=== PATIENT | female | born 1970 | race Caucasian/White ===

== ENCOUNTER 2016-08-06 10:51 | Emergency (ER) | payer OTHER ==
[2016-08-06 11:09] VITALS: BP 100/56; PULSE 70; TEMP 97.7; BMI 39.3
[2016-08-06] MEDS ORDERED: ALBUTEROL SO4 2.5/IPRATROPIUM 0.5 INH SOL 3 ML VIAL.NEB. NEB ONE ×4 (12:11→13:42)
--- NOTE | 2016-08-06 12:12 | PDOC ---
History of Present Illness - General Chief Complaint: Asthma Stated Complaint: SOB Time Seen by Provider: 08/06/16 11:54 History Source: Patient Exam Limitations: No Limitations - History of Present Illness Initial Comments: 08/06/16 12:45 My chief complaint: Wheezing, cough, shortness of breath History of present illness: Patient is a 46 year old female with a history of asthma here today complaining of cough productive for clear 3 days with wheezing and shortness of breath even at rest for the last 3 days with minimal temporary relief of symptoms with albuterol. Patient reports that she supposed to be using Advair however her network systems integrator an internal medicine doctor from [facility] did not do the proper paperwork for her to get it from her insurance company Patient normally takes Advair that helps prevent flareups of her asthma. Patient has been taking Singulair however it dries out her throat and her nose. Patient does report slight nasal congestion. Patient is able to speak in complete sentences without any shortness of breath noticed. Patient is a smoker is taking Chantix. Reports that she was hospitalized for her asthma on here for a few days. Patient denies ever being intubated due to her asthma. She denies any fever. Timing/Duration: getting worse Severity: moderate (3 days ) Associated Symptoms: reports: cough (white sputa), shortness of breath (even at rest) Past History - Past Medical History Allergies/Adverse Reactions: Allergies Allergy/AdvReac Type Severity Reaction Status Date / Time shellfish derived Allergy Difficulty Verified 08/06/16 11:09 Breathing Home Medications: Ambulatory Orders Albuterol Sulfate Inhaler - [Ventolin HFA Inhaler -] 1 inh PO QID PRN 04/16/12 Albuterol 2.5/Ipratropium 0.5 [Duoneb -] 1 neb IH QID #28 vial.neb. MDD 4 Albuterol Sulfate Inhaler - [Ventolin Hfa Inhaler -] 2 inh PO Q4H PRN #1 inh MDD 1 08/06/16 Fluticasone/Salmeterol [Advair 250-50 Diskus] 1 each IH BID #1 blst.w.dev MDD 2 08/06/16 Prednisone [Deltasone] 60 mg PO DAILY #12 tablet 08/06/16 Asthma: Yes - Psycho/Social/Smoking Cessation Hx Anxiety: No Suicidal Ideation: No Smoking Status: Yes Smoking History: Former smoker Have you smoked in the past 12 months: Yes Number of Cigarettes Smoked Daily: 20 If you are a former smoker, when did you quit?: 2 WKS Information on smoking cessation initiated: No 'Breaking Loose' booklet given: 06/07/16 Hx Alcohol Use: No Drug/Substance Use Hx: No Substance Use Type: None Review of Systems - Review of Systems Able to Perform ROS?: Yes Constitutional: No: Symptoms Reported HEENTM: Yes: Nose Congestion (slight) Respiratory: Yes: Shortness of Breath, SOB at Rest, Wheezing, Productive cough ( clear ). No: Stridor Cardiac (ROS): No: Symptoms Reported ABD/GI: No: Symptoms Reported : No: Symptoms Reported Musculoskeletal: No: Symptoms Reported Integumentary: No: Symptoms Reported Neurological: No: Symptoms reported *Physical Exam - Vital Signs Last Vital Signs Temp Pulse Resp BP Pulse Ox 97.7 F 70 20 100/56 96 08/06/16 11:06 08/06/16 11:06 08/06/16 11:06 08/06/16 11:06 08/06/16 11:06 - Physical Exam General Appearance: Yes: Appropriately Dressed HEENT: positive: TMs Normal, Nasal Congestion. negative: Pharyngeal Erythema, Tonsillar Exudate, Tonsillar Erythema, Rhinorrhea Neck: negative: Lymphadenopathy (R), Lymphadenopathy (L) Respiratory/Chest: positive: Wheezing (diffuse inspiratory/expiratory b/l ). negative: Accessory Muscle Use, Decreased Breath Sounds, Crackles, Rhonchi, Stridor Cardiovascular: positive: Regular Rhythm, Regular Rate, S1, S2 Integumentary: positive: Normal Color Neurologic: positive: Alert, Responsive Medical Decision Making - Medical Decision Making 08/06/16 12:51 Patient is a 46 year old female with a history of asthma here today complaining of cough productive for clear 3 days with wheezing and shortness of breath even at rest for the last 3 days with minimal temporary relief of symptoms with albuterol. Patient reports that she supposed to be using Advair however her network systems integrator an internal medicine doctor from [facility] did not do the proper paperwork for her to get it from her insurance company Patient normally takes Advair that helps prevent flareups of her asthma. Patient has been taking Singulair however it dries out her throat and her nose. Patient does report slight nasal congestion. Patient is able to speak in complete sentences without any shortness of breath noticed. Patient is a smoker is taking Chantix. Reports that she was hospitalized for her asthma on 06/09/2016 here for a few days. Patient denies ever being intubated due to her asthma. She denies any fever. My exacerbation Plan: Prednisone 60 mg now and then daily 4 days DuoNeb now X-ray chest PA and lateral no infiltrate per Dr. Silva 08/06/16 13:01 08/06/16 13:41 feeling better lungs rt CTA left minimal expiratory wheeze duoneb 08/06/16 13:51 advair 250/50 one inhale bid duoneb neb qid prn albuterol HFA 2 puffs every 4 hrs prn wheezing/sob *DC/Admit/Observation/Transfer Diagnosis at time of Disposition: Asthma exacerbation - Discharge Dispostion Disposition: HOME Condition at time of disposition: Stable - Prescriptions Prescriptions: Fluticasone/Salmeterol [Advair 250-50 Diskus] 1 each IH BID #1 blst.w.dev MDD 2 Prednisone [Deltasone] 60 mg PO DAILY #12 tablet Albuterol 2.5/Ipratropium 0.5 [Duoneb -] 1 neb IH QID #28 vial.neb. MDD 4 Albuterol Sulfate Inhaler - [Ventolin Hfa Inhaler -] 2 inh PO Q4H PRN #1 inh MDD 1 PRN Reason: Short Of Breath/Wheezing - Patient Instructions Additional Instructions: Follow-up with your primary care provider within the next 2 days Return to emergency room if any difficulty breathing Rest Patient voiced understanding of discharge instructions and all questions were answered
[2016-08-06] MEDS ORDERED: predniSONE 20 MG TABLET (UD) PO ONE (12:31)
[2016-08-06] MEDS ORDERED: predniSONE 20 MG TABLET (UD) ONE (12:32)
== END 2016-08-06 13:57 | disposition home or self-care (01) ==
LOC: JERFT 10:51
PROC: 3E0F7GC Introduction of Other Therapeutic Substance into Respiratory Tract, Via Natural or Artificial Opening (ICD-10-PCS; principal; 2016-08-06)
DX: J45.901 Unspecified asthma with (acute) exacerbation (principal); Z87.891 Personal history of nicotine dependence
CPT/HCPCS: 71020-TC; 99281-25

== ENCOUNTER 2021-05-07 09:32 | Emergency (ER) | payer OTHER ==
[2021-05-07 09:46] VITALS: BP 108/71; PULSE 59; TEMP 98.2; BMI 25.1
[2021-05-07] MEDS ORDERED: ONDANSETRON 4 MG/2 ML VIAL IVPUSH ONE ×2 (10:45→13:50)
[2021-05-07] MEDS ORDERED: SODIUM CHLORIDE 1,000 ML IV STA (10:45)
[2021-05-07] MEDS ORDERED: ACETAMINOPHEN 1000 MG/100 ML VIAL IVPB ONE (10:45)
[2021-05-07] MEDS ORDERED: ACETAMINOPHEN INJECTION 100 ML IVPB ONE (11:15)
[2021-05-07] MEDS ORDERED: ONDANSETRON 4 MG/2 ML VIAL ONE ×2 (11:16→14:13)
[2021-05-07 11:52] LABS: BASO % 1.1 % (0-2.0); EOS % 3.7 % (0-4.5); HEMATOCRIT 40.5 % (32.4-45.2); HEMOGLOBIN 14.2 GM/dL (10.7-15.3); LYMPH % 25.1 % (8-40); MCH 30.5 pg (25.7-33.7); MCHC 35.1 g/dl (32.0-36.0); MEAN CELL VOLUME 86.9 fl (80-96); MEAN PLT VOLUME 8.2 fl (7.5-11.1); MONO % 4.5 % (3.8-10.2); NEUT % 65.6 % (42.8-82.8); PLATELET COUNT 236 10^3/uL (134-434); RBC 4.66 M/mm3 (3.60-5.2); WHITE BLOOD COUNT 5.8 K/mm3 (4.0-10.0)
[2021-05-07 11:57] LABS: INR 1.14 (0.83-1.09); PROTHROMBIN TIME (PATIENT) 12.8 SEC (9.7-13.0)
[2021-05-07 12:19] LABS: ALBUMIN 3.9 g/dl (3.4-5.0); BLOOD UREA NITROGEN 10.9 mg/dL (7-18); CALCIUM 9.2 mg/dL (8.5-10.1)
[2021-05-07 12:24] LABS: BILIRUBIN,TOTAL 1.2 mg/dL (0.2-1); CREATININE 0.6 mg/dL (0.55-1.3); TOT PROT 7.8 g/dl (6.4-8.2)
[2021-05-07 12:50] LABS: PH,URINE 6.5 (5.0-8.0); URINE APPEARANCE CLEAR; URINE BILIRUBIN NEGATIVE (NEGATIVE); URINE COLOR YELLOW; URINE GLUCOSE (UA) NEGATIVE (NEGATIVE); URINE KETONE NEGATIVE (NEGATIVE); URINE LEUK ESTERASE NEGATIVE (NEGATIVE); URINE NITRITE NEGATIVE (NEGATIVE); URINE PROTEIN NEGATIVE (NEGATIVE)
[2021-05-07 12:53] LABS: HCG,QUALITATIVE URINE Negative
[2021-05-07] MEDS ORDERED: morphine CARPU-JECT 4 MG/1 ML DISP.SYRIN IVPUSH ONE (13:50)
[2021-05-07] MEDS ORDERED: morphine SULFATE 4 MG/ML VIAL ONE (14:12)
[2021-05-07] MEDS ORDERED: KETOROLAC TROMETHAMINE 30 MG/1 ML VIAL IVPUSH ONE (18:54)
== END 2021-05-07 20:09 | disposition home or self-care (01) ==
LOC: JER 09:32
PROC: 3E033GC Introduction of Other Therapeutic Substance into Peripheral Vein, Percutaneous Approach (ICD-10-PCS; principal; 2021-05-07)
DX: R10.31 Right lower quadrant pain (principal); M54.50 Low back pain, unspecified
CPT/HCPCS: 36415; 74177-TC; 80053; 81003; 83690; 84703; 85025; 85610; 87086; 99285-25; J0131